=== PATIENT | male | born 1990 | race Two or more races ===

== ENCOUNTER 2021-01-22 10:32 | Emergency (ER) | payer MEDICAID, OTHER ==
[~2021-01-22] VITALS: Ht 170.2 cm; Wt 90.7 kg
[2021-01-22 10:59] VITALS: BP 98/75
== END 2021-01-22 11:16 | disposition home or self-care (01) ==
LOC: ER 10:32
DX: L73.9 Follicular disorder, unspecified (principal); F17.210 Nicotine dependence, cigarettes, uncomplicated